=== PATIENT | male | born 1985 | race African-American/Black ===

== ENCOUNTER 2018-11-18 18:44 | Emergency (ER) | payer SELFPAY ==
[~2018-11-18] VITALS: Ht 175.3 cm; Wt 72.0 kg
[2018-11-18 18:52] VITALS: BP 128/64
== END 2018-11-18 20:04 | disposition left against medical advice (07) ==
LOC: ER 18:44
DX: Z53.21 Procedure and treatment not carried out due to patient leaving prior to being seen by health care provider (principal)